=== PATIENT | male | born 1935 | race Caucasian/White ===

== ENCOUNTER → 2017-05-18 | Outpatient (CLI) | payer MEDICARE, OTHER ==
[~2017-05-18] MED LIST: ACTOS30 MG; ASPIRIN81 M1 PO; BROMOCRIPTINE2.5 MG PO; COLACE100 MG PO; COREG3.125 MG PO; FLOMAX0.4 MG PO; HUMULIN R100 U/ML SC; HYDR25T PO; KEPPRA500 MG PO; LEVOFLOXACIN500 MG PO; LEXAPRO10 MG PO; LISINOPRIL10 MG PO; LISINOPRIL20 MG PO; MIRALAX POWDER17 GM PO; Metformin Hydr500 MG PO; PLAVIX75 MG PO; POLYETHYLENE GL1 PO6 PO; PROVIGIL100 MG PO; RITE AID BRANDS1 TA4 PO; ROCEPHIN1 GM IJ; SIMVASTATIN20 MG PO; SIMVASTATIN40 MG PO; TYLENOL500 MG PO
== END | disposition home or self-care (01) ==
LOC: CARD 09:30
DX: I34.0 Nonrheumatic mitral (valve) insufficiency (principal); I51.7 Cardiomegaly

== ENCOUNTER → 2017-08-20 | Outpatient (CLI) | payer MEDICARE, OTHER | END | disposition home or self-care (01) | LOC: LAB 13:32 | DX: E11.65 Type 2 diabetes mellitus with hyperglycemia (principal) ==

== ENCOUNTER 2018-03-18 12:12 | Emergency (ER) | payer MEDICARE, OTHER ==
[~2018-03-18] VITALS: Wt 93.0 kg
[2018-03-18] MEDS ORDERED: VIBRAMYCIN100 MG PO (14:44)
== END 2018-03-18 14:42 | disposition home or self-care (01) ==
LOC: ED 12:12
DX: S60.222A Contusion of left hand, initial encounter (principal); Z88.5 Allergy status to narcotic agent; Z79.2 Long term (current) use of antibiotics; Z79.82 Long term (current) use of aspirin; Z79.84 Long term (current) use of oral hypoglycemic drugs; Z79.899 Other long term (current) drug therapy; W19.XXXA Unspecified fall, initial encounter; Y93.89 Activity, other specified; Y92.89 Other specified places as the place of occurrence of the external cause; Y99.8 Other external cause status

== ENCOUNTER → 2018-04-12 | Outpatient (CLI) | payer MEDICARE, OTHER ==
[~2018-04-12] MED LIST changes: +VIBRAMYCIN100 MG PO
== END | disposition home or self-care (01) ==
LOC: LAB 13:19 → US 13:30
DX: N20.0 Calculus of kidney (principal); N32.89 Other specified disorders of bladder; N18.3 Chronic kidney disease, stage 3 (moderate)

== ENCOUNTER 2019-02-14 19:08 | Emergency (ER) | payer MEDICARE, OTHER ==
[~2019-02-14] VITALS: Ht 170.1 cm; Wt 90.7 kg
--- NOTE | ~2019-02-14 | EKG ---
[place], [place] ELECTROCARDIOGRAM REPORT NAME: LYNN OWENS UNIT #: [id number] ROOM: DOCTOR: EPIPHANY DRAFT REPORT BIRTHDATE: [birth year] [facility] Test Date: 2019-02-14 Test Time: 19:18:40 Pat Name: LYNN OWENS Department: Room: Gender: Predator Control Trapper: Vaibhav Lopez : 1935 Requested By: GEORGE MCGUIRE Order Number: [id number] Reading MD: Preet Matson MD Measurements Intervals [place] Rate: 70 P: 24 [place]: 192 QRS: -49 QRSD: 149 T: 1 QT: 415 QTc: 448 Interpretive Statements Sinus rhythm RBBB and LAFB Electronically Signed On 02-17-2019 7:21:56 PDT by Preet Matson MD CM:EKGRPT:ELECTROCARDIOGRAM REPORT 17 0721 GEORGE MCGUIRE MD EPIPHANY DRAFT REPORT GEORGE MCGUIRE MD
[2019-02-14 19:38] LABS: BASO % 0.5 % (0.0-1.0); EOS # 0.1 10*3/uL (0.0-0.4); EOS % 0.8 % (1.0-4.0); HEMATOCRIT 35.4 % (42.0-52.0); HEMOGLOBIN 11.3 g/dl (14.0-18.0); LYMPH # 0.9 10*3/uL (1.3-4.4); LYMPH % 10.1 % (27.0-41.0); MEAN CELL VOLUME 93.2 fl (80.0-94.0); MEAN CORPUSCULAR HGB 29.7 pg (27.0-31.0); MEAN CORPUSCULAR HGB CONC 31.9 g/dl (33.0-37.0); MONO # 0.7 10*3/uL (0.1-1.0); MONO % 8.1 % (3.0-9.0); NEUT # 6.8 10*3/uL (2.3-7.9); NEUT % 80.3 % (47.0-73.0); PLATELET COUNT AUTOMATED 307 10*3/uL (130-400); RED CELL DISTRI WIDTH 11.8 % (0-14.5); WHITE BLOOD COUNT 8.5 10*3/uL (4.8-10.8)
[2019-02-14 19:55] LABS: ALBUMIN 2.5 gm/dl (3.1-4.5); ALKALINE PHOSPHATASE 83 U/L (45-117); BUN 26 mg/dl (7-24); CHLORIDE 102 mmol/L (98-107); CREATININE 1.12 mg/dL (0.70-1.30); POTASSIUM 4.3 mmol/L (3.5-5.1); SGOT/AST 13 IU/L (3-35); SGPT/ALT 24 U/L (12-78); SODIUM 136 mmol/L (136-145); TOTAL PROTEIN 7.3 gm/dL (6.4-8.2)
[2019-02-14 19:56] LABS: TROPONIN I < 0.015 ng/ml (<0.045)
[2019-02-14 19:57] LABS: ACT PARTIAL THROMBO TIME 29.9 SECONDS (20.0-32.1)
[2019-02-14 20:14] LABS: BILIRUBIN NEGATIVE (NEGATIVE); BLOOD TRACE-INTACT (NEGATIVE); CLARITY CLEAR (CLEAR); COLOR YELLOW (YELLOW); GLUCOSE NEGATIVE (NEGATIVE); KETONE NEGATIVE (NEGATIVE); LEUKO ESTERASE NEGATIVE (NEGATIVE); NITRITE NEGATIVE (NEGATIVE); PH 5.5 (5.0-9.0); UROBILINOGEN 0.2 E.U./dl (0.2-1.0)
[2019-02-14] MEDS ORDERED: DONEPEZIL HYDROC5 MG PO (20:14)
[2019-02-14] MEDS ORDERED: SERTRALINE HYDR50 MG PO (20:15)
[2019-02-14] MEDS ORDERED: MIDODRINE HCL10 MG PO (20:16)
[2019-02-14 20:20] LABS: BACTERIA 2+; EPITHELIAL CELLS 0-2; WBC 0-2 wbc/hpf (0-5)
== END 2019-02-14 22:59 | disposition home or self-care (01) ==
LOC: ED 19:08
PROVIDERS: Emergency Medicine Emergency Medical Services; Physician Assistant
DX: R53.1 Weakness (principal); R26.2 Difficulty in walking, not elsewhere classified; R79.1 Abnormal coagulation profile; Z79.899 Other long term (current) drug therapy; Z79.82 Long term (current) use of aspirin; Z88.6 Allergy status to analgesic agent

== ENCOUNTER 2019-03-03 11:59 | Inpatient (IN) | payer MEDICARE, OTHER ==
[~2019-03-03] VITALS: Ht 170.1 cm; Wt 89.1 kg
--- NOTE | ~2019-03-03 | CON ---
[place], [place] REPORT OF CONSULTATION NAME: [facility]NN OWENS [id number] UNIT #: [id number] ROOM: 531 DOCTOR: PHD KIRTI TATYANA BIRTHDATE: [birth year] DOS: 03/04/2019 HISTORY OF PRESENT ILLNESS: The patient is an 83-year-old male, referred by Dr. Yani Sol for a behavioral health consult. At the present time, the patient is on the 5th floor at [facility]. The patient presented to the ED due to generalized weakness. He has not been able to get out of bed since Day. He has a history of depression and has been experiencing visual hallucinations lately. He also has history of dementia. He lives with his and is a poor historian. He denied alcohol, tobacco, and illegal drug use. PAST MEDICAL HISTORY: BPH, CKD, dementia, depression, diabetic neuropathy, type 2 diabetes, expressive aphasia, hyperlipidemia, hypertension, obesity, obstructive sleep apnea, stroke, and TIA. MEDICATIONS: Folic acid, vitamin D, Zoloft, Plavix, Lovenox, Aricept, Zocor, ProAmatine, Keppra, Flomax, Humalog, Provigil, and Restoril. MENTAL STATUS EXAMINATION: The patient was sitting comfortably, in no apparent distress. He was awake, alert, and oriented to person, place, and month. Mood was depressed. Affect was blunted. He denied suicidal and homicidal ideation, plan, and intent. Speech was slow. He was slow to respond to questions. Short and long-term memory gaps were apparent in conversation. He appeared to easily confuse. He did not appear to be responding to internal stimuli. He reports that he sometimes sees mice running at the [place], but he knows that they are not real. He had a hard time understanding questions. DIAGNOSES: 1. Unspecified neurocognitive disorder, unspecified depressive disorder. 2. Unspecified psychosis. RECOMMENDATIONS: I consulted with Dr. Rider about the patient. He suggested discontinuing Zoloft and Aricept in favor of an Exelon patch 4.6 mg and Remeron 15 mg at bedtime. Thank you very much for this consult. Kymberly Francisco, PhD CM:CONSTR:REPORT OF CONSULTATION 1459 03/05/19 0246 interface
--- NOTE | ~2019-03-03 | EKG ---
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
[~2019-03-03 11:59] MED LIST changes: +DONEPEZIL HYDROC5 MG PO; +MIDODRINE HCL10 MG PO; +SERTRALINE HYDR50 MG PO
[2019-03-03 12:05] VITALS: BP 140/44
[2019-03-03 12:38] LABS: BASO % 0.4 % (0.0-1.0); EOS # 0.2 10*3/uL (0.0-0.4); EOS % 2.4 % (1.0-4.0); HEMOGLOBIN 11.3 g/dl (14.0-18.0); LYMPH # 1.1 10*3/uL (1.3-4.4); LYMPH % 10.9 % (27.0-41.0); MEAN CORPUSCULAR HGB 29.2 pg (27.0-31.0); MEAN CORPUSCULAR HGB CONC 31.4 g/dl (33.0-37.0); MEAN PLATELET VOLUME 10.4 fl (9.6-12.3); MONO # 0.7 10*3/uL (0.1-1.0); MONO % 7.4 % (3.0-9.0); NEUT # 7.7 10*3/uL (2.3-7.9); NEUT % 78.3 % (47.0-73.0); PLATELET COUNT AUTOMATED 300 10*3/uL (130-400); RED BLOOD COUNT 3.87 10*6/uL (4.50-5.90); RED CELL DISTRI WIDTH 12.2 % (0-14.5); WHITE BLOOD COUNT 9.8 10*3/uL (4.8-10.8)
[2019-03-03 12:49] LABS: ACT PARTIAL THROMBO TIME 27.8 SECONDS (20.0-32.1); INTERNATIONAL NORM RATIO 0.9 (2.0-3.5)
[2019-03-03 12:56] LABS: ALBUMIN 2.4 gm/dl (3.1-4.5); ALKALINE PHOSPHATASE 101 U/L (45-117); BUN 27 mg/dl (7-24); CHLORIDE 107 mmol/L (98-107); CREATININE 1.27 mg/dL (0.70-1.30); POTASSIUM 4.1 mmol/L (3.5-5.1); SGOT/AST 14 IU/L (3-35); SGPT/ALT 20 U/L (12-78); SODIUM 140 mmol/L (136-145)
[2019-03-03 13:03] LABS: TROPONIN I < 0.015 ng/ml (<0.045)
[2019-03-03 13:30] VITALS: BP 132/80
[2019-03-03] MEDS ORDERED: VITAMIN D-32000 UNI1 PO (14:58)
[2019-03-03 16:00] VITALS: BP 137/39
[2019-03-03 20:00] VITALS: BP 134/46
[2019-03-03 22:50] LABS: BILIRUBIN NEGATIVE (NEGATIVE); BLOOD NEGATIVE (NEGATIVE); CLARITY CLEAR (CLEAR); COLOR YELLOW (YELLOW); GLUCOSE NEGATIVE (NEGATIVE); KETONE NEGATIVE (NEGATIVE); LEUKO ESTERASE NEGATIVE (NEGATIVE); NITRITE NEGATIVE (NEGATIVE); PH 5.5 (5.0-9.0); UROBILINOGEN 0.2 E.U./dl (0.2-1.0)
[2019-03-04] VITALS: BP 133/49
[2019-03-04 06:34] LABS: ALBUMIN 2.4 gm/dl (3.1-4.5); BUN 29 mg/dl (7-24); CHLORIDE 107 mmol/L (98-107); CHOLESTEROL 91 mg/dL (<200); CREATININE 1.08 mg/dL (0.70-1.30); POTASSIUM 4.2 mmol/L (3.5-5.1); SGOT/AST 10 IU/L (3-35); SGPT/ALT 13 U/L (12-78); SODIUM 138 mmol/L (136-145); TOTAL PROTEIN 6.6 gm/dL (6.4-8.2); TRIGLYCERIDES 49 mg/dl (<150); VLDL CHOLESTEROL 10 mg/dL (6-40)
[2019-03-04 06:41] LABS: ALKALINE PHOSPHATASE 86 U/L (45-117); FREE T4 1.05 ng/dl (0.76-1.46); HDL CHOLESTEROL 39 mg/dl (40-60); LDL CHOLESTEROL 42 mg/dL (9-159)
[2019-03-04 06:44] LABS: BASO # 0.1 10*3/uL (0.0-0.1); BASO % 0.7 % (0.0-1.0); EOS # 0.3 10*3/uL (0.0-0.4); EOS % 3.3 % (1.0-4.0); HEMATOCRIT 33.4 % (42.0-52.0); HEMOGLOBIN 10.6 g/dl (14.0-18.0); LYMPH # 1.4 10*3/uL (1.3-4.4); LYMPH % 17.7 % (27.0-41.0); MEAN CORPUSCULAR HGB 29.5 pg (27.0-31.0); MEAN CORPUSCULAR HGB CONC 31.7 g/dl (33.0-37.0); MONO # 0.6 10*3/uL (0.1-1.0); MONO % 7.9 % (3.0-9.0); NEUT # 5.3 10*3/uL (2.3-7.9); NEUT % 69.7 % (47.0-73.0); PLATELET COUNT AUTOMATED 296 10*3/uL (130-400); RED BLOOD COUNT 3.59 10*6/uL (4.50-5.90); RED CELL DISTRI WIDTH 12.1 % (0-14.5); WHITE BLOOD COUNT 7.6 10*3/uL (4.8-10.8)
[2019-03-04 07:35] LABS: VITAMIN D, 25-HYDROXY 38.8 ng/mL (30-100)
[2019-03-04 08:00] VITALS: BP 118/49
[2019-03-04 12:00] VITALS: BP 122/48
[2019-03-04 16:00] VITALS: BP 133/49
[2019-03-04 20:00] VITALS: BP 136/47
[2019-03-05] VITALS: BP 142/54
[2019-03-05 06:30] LABS: BASO # 0.1 10*3/uL (0.0-0.1); BASO % 0.8 % (0.0-1.0); EOS # 0.3 10*3/uL (0.0-0.4); HEMOGLOBIN 10.4 g/dl (14.0-18.0); LYMPH # 1.4 10*3/uL (1.3-4.4); LYMPH % 18.7 % (27.0-41.0); MEAN CELL VOLUME 92.7 fl (80.0-94.0); MEAN CORPUSCULAR HGB 29.2 pg (27.0-31.0); MEAN CORPUSCULAR HGB CONC 31.5 g/dl (33.0-37.0); MEAN PLATELET VOLUME 10.9 fl (9.6-12.3); MONO # 0.6 10*3/uL (0.1-1.0); MONO % 8.4 % (3.0-9.0); NEUT # 5.1 10*3/uL (2.3-7.9); NEUT % 67.6 % (47.0-73.0); PLATELET COUNT AUTOMATED 280 10*3/uL (130-400); RED BLOOD COUNT 3.56 10*6/uL (4.50-5.90); RED CELL DISTRI WIDTH 12.1 % (0-14.5); WHITE BLOOD COUNT 7.5 10*3/uL (4.8-10.8)
[2019-03-05 06:36] LABS: BUN 26 mg/dl (7-24); CHLORIDE 108 mmol/L (98-107); CREATININE 0.93 mg/dL (0.70-1.30); POTASSIUM 4.1 mmol/L (3.5-5.1); SODIUM 141 mmol/L (136-145)
[2019-03-05 08:00] VITALS: BP 114/52
[2019-03-05 12:00] VITALS: BP 112/46
[2019-03-05] MEDS ORDERED: EXELON1 EACH T (15:19)
[2019-03-05] MEDS ORDERED: REMERON15 M2 PO (15:19)
[2019-03-05 16:00] VITALS: BP 110/56
== END 2019-03-05 20:33 | DRG 947 ==
LOC: ED 11:59 → EDHOLD 12:57 → 5E 12:57
PROVIDERS: Emergency Medicine; Internal Medicine; ADMIT Internal Medicine
DX: R53.1 Weakness (principal); E43 Unspecified severe protein-calorie malnutrition; E87.2 Acidosis; R47.01 Aphasia; R62.7 Adult failure to thrive; G40.909 Epilepsy, unspecified, not intractable, without status epilepticus; N18.9 Chronic kidney disease, unspecified; F03.90 Unspecified dementia, unspecified severity, without behavioral disturbance, psychotic disturbance, mood disturbance, and anxiety; E11.40 Type 2 diabetes mellitus with diabetic neuropathy, unspecified; E66.9 Obesity, unspecified; G47.33 Obstructive sleep apnea (adult) (pediatric); I12.9 Hypertensive chronic kidney disease with stage 1 through stage 4 chronic kidney disease, or unspecified chronic kidney disease; D64.9 Anemia, unspecified; E11.65 Type 2 diabetes mellitus with hyperglycemia; N40.1 Benign prostatic hyperplasia with lower urinary tract symptoms; E11.49 Type 2 diabetes mellitus with other diabetic neurological complication; F32.9 Major depressive disorder, single episode, unspecified; R41.9 Unspecified symptoms and signs involving cognitive functions and awareness; F29 Unspecified psychosis not due to a substance or known physiological condition; Z88.6 Allergy status to analgesic agent; Z86.73 Personal history of transient ischemic attack (TIA), and cerebral infarction without residual deficits; Z80.52 Family history of malignant neoplasm of bladder; Z79.4 Long term (current) use of insulin; Z68.30 Body mass index [BMI] 30.0-30.9, adult

== ENCOUNTER 2021-09-21 12:18 | Inpatient (IN) | payer MEDICARE ==
[~2021-09-21] VITALS: Ht 172.7 cm; Wt 88.9 kg
[~2021-09-21 12:18] MED LIST changes: +EXELON1 EACH T; +GLUCOPHAGE500 MG PO; -Metformin Hydr500 MG PO; +REMERON15 M2 PO; +VITAMIN D-32000 UNI1 PO
[2021-09-21 12:25] VITALS: BP 179/60
[2021-09-21] MEDS ORDERED: SERTRALINE HYDR50 MG PO (12:41)
[2021-09-21 13:05] LABS: BASO % 0.6 % (0.0-1.0); EOS # 0.3 10*3/uL (0.0-0.4); EOS % 3.7 % (1.0-4.0); HEMATOCRIT 42.4 % (42.0-52.0); LYMPH # 1.8 10*3/uL (1.3-4.4); LYMPH % 26.1 % (27.0-41.0); MEAN CELL VOLUME 92.4 fl (80.0-94.0); MEAN CORPUSCULAR HGB 31.2 pg (27.0-31.0); MEAN CORPUSCULAR HGB CONC 33.7 g/dl (33.0-37.0); MEAN PLATELET VOLUME 11.5 fl (9.6-12.3); MONO # 0.6 10*3/uL (0.1-1.0); MONO % 7.9 % (3.0-9.0); NEUT # 4.3 10*3/uL (2.3-7.9); NEUT % 61.4 % (47.0-73.0); PLATELET COUNT AUTOMATED 179 10*3/uL (130-400); RED BLOOD COUNT 4.59 10*6/uL (4.50-5.90); RED CELL DISTRI WIDTH 12.2 % (0-14.5)
[2021-09-21 13:23] LABS: CREATININE 1.69 mg/dL (0.70-1.30); POTASSIUM 4.2 mmol/L (3.5-5.1); TOTAL PROTEIN 7.3 gm/dL (6.4-8.2)
[2021-09-21 13:44] LABS: BILIRUBIN Negative (Negative); BLOOD Negative (Negative); CLARITY Clear (Clear); COLOR Yellow (Yellow); GLUCOSE Negative (Negative); KETONE Negative (Negative); LEUKO ESTERASE 1+ (Negative); NITRITE Negative (Negative); SPECIFIC GRAVITY 1.015 (1.001-1.030); UROBILINOGEN 0.2 E.U./dl (0.0-1.0)
[2021-09-21 13:49] LABS: BACTERIA 1+; WBC 16-20 wbc/hpf (0-5)
[2021-09-21 15:17] VITALS: BP 161/89
[2021-09-21 15:40] VITALS: BP 108/68
[2021-09-21 20:00] VITALS: BP 175/59
[2021-09-22] VITALS: BP 150/64
[2021-09-22 06:18] LABS: POTASSIUM 4.5 mmol/L (3.5-5.1)
[2021-09-22 06:31] LABS: CREATININE 1.45 mg/dL (0.70-1.30); THYROID STIM HORMONE (HS) 1.65 uIU/ml (0.358-4.75)
[2021-09-22 06:36] LABS: BASO # 0.1 10*3/uL (0.0-0.1); BASO % 0.8 % (0.0-1.0); EOS # 0.2 10*3/uL (0.0-0.4); EOS % 3.5 % (1.0-4.0); HEMATOCRIT 42.4 % (42.0-52.0); LYMPH # 1.5 10*3/uL (1.3-4.4); LYMPH % 21.9 % (27.0-41.0); MEAN CELL VOLUME 93.6 fl (80.0-94.0); MEAN CORPUSCULAR HGB 31.6 pg (27.0-31.0); MEAN CORPUSCULAR HGB CONC 33.7 g/dl (33.0-37.0); MEAN PLATELET VOLUME 11.8 fl (9.6-12.3); MONO # 0.6 10*3/uL (0.1-1.0); MONO % 8.9 % (3.0-9.0); NEUT # 4.3 10*3/uL (2.3-7.9); NEUT % 64.6 % (47.0-73.0); PLATELET COUNT AUTOMATED 167 10*3/uL (130-400); RED BLOOD COUNT 4.53 10*6/uL (4.50-5.90); RED CELL DISTRI WIDTH 12.1 % (0-14.5); WHITE BLOOD COUNT 6.6 10*3/uL (4.8-10.8)
[2021-09-22 08:34] VITALS: BP 179/54
[2021-09-22 10:20] VITALS: BP 130/54
[2021-09-22 12:00] VITALS: BP 135/48
[2021-09-22 20:00] VITALS: BP 109/42
[2021-09-23] VITALS: BP 165/54
[2021-09-23 13:20] LABS: CREATININE 1.5 mg/dL (0.70-1.30)
[2021-09-23] MEDS ORDERED: CEFUROXIME AXE500 MG PO (16:23)
[2021-09-23 16:34] LABS: BASO % 0.6 % (0.0-1.0); EOS # 0.3 10*3/uL (0.0-0.4); HEMATOCRIT 37.4 % (42.0-52.0); LYMPH # 1.5 10*3/uL (1.3-4.4); LYMPH % 21.4 % (27.0-41.0); MEAN CELL VOLUME 91.9 fl (80.0-94.0); MEAN CORPUSCULAR HGB CONC 33.7 g/dl (33.0-37.0); MONO # 0.6 10*3/uL (0.1-1.0); NEUT # 4.5 10*3/uL (2.3-7.9); NEUT % 64.7 % (47.0-73.0); PLATELET COUNT AUTOMATED 149 10*3/uL (130-400); RED BLOOD COUNT 4.07 10*6/uL (4.50-5.90); RED CELL DISTRI WIDTH 12.2 % (0-14.5)
[2021-09-23 20:00] VITALS: BP 140/60
[2021-09-24] VITALS: BP 150/66
[2021-09-24 05:59] LABS: BUN 30 mg/dl (7-24); CHLORIDE 112 mmol/L (98-107); POTASSIUM 4.4 mmol/L (3.5-5.1); SODIUM 142 mmol/L (136-145)
[2021-09-24 08:00] VITALS: BP 178/62
== END 2021-09-24 12:03 | DRG 683 ==
LOC: ED 12:18 → 5E 14:13 → EDHOLD 14:13 → 5E 14:56
PROVIDERS: Emergency Medicine; Internal Medicine; ADMIT Internal Medicine; ATTEND Internal Medicine
DX: N17.9 Acute kidney failure, unspecified (principal); N30.00 Acute cystitis without hematuria; E86.0 Dehydration; I12.9 Hypertensive chronic kidney disease with stage 1 through stage 4 chronic kidney disease, or unspecified chronic kidney disease; E11.22 Type 2 diabetes mellitus with diabetic chronic kidney disease; N18.30 Chronic kidney disease, stage 3 unspecified; Z20.822 Contact with and (suspected) exposure to COVID-19; R62.7 Adult failure to thrive; I69.398 Other sequelae of cerebral infarction; E78.5 Hyperlipidemia, unspecified; E66.9 Obesity, unspecified; A49.1 Streptococcal infection, unspecified site; Z88.5 Allergy status to narcotic agent; Z68.29 Body mass index [BMI] 29.0-29.9, adult

== ENCOUNTER 2021-12-03 20:08 | Emergency (ER) | payer MEDICARE ==
[~2021-12-03] VITALS: Ht 6583 cm; Wt 98.0 kg
[~2021-12-03 20:08] MED LIST changes: +CEFUROXIME AXE500 MG PO
[2021-12-03 20:47] LABS: BASO # 0.1 10*3/uL (0.0-0.1); BASO % 0.4 % (0.0-1.0); EOS # 0.2 10*3/uL (0.0-0.4); HEMATOCRIT 37.7 % (42.0-52.0); LYMPH # 1.1 10*3/uL (1.3-4.4); LYMPH % 9.2 % (27.0-41.0); MEAN CELL VOLUME 94.3 fl (80.0-94.0); MEAN CORPUSCULAR HGB 30.5 pg (27.0-31.0); MEAN CORPUSCULAR HGB CONC 32.4 g/dl (33.0-37.0); MEAN PLATELET VOLUME 10.8 fl (9.6-12.3); MONO # 1.2 10*3/uL (0.1-1.0); MONO % 10.4 % (3.0-9.0); NEUT # 8.9 10*3/uL (2.3-7.9); NEUT % 77.7 % (47.0-73.0); PLATELET COUNT AUTOMATED 159 10*3/uL (130-400); RED CELL DISTRI WIDTH 12.7 % (0-14.5); WHITE BLOOD COUNT 11.5 10*3/uL (4.8-10.8)
[2021-12-03 21:04] LABS: ALKALINE PHOSPHATASE 95 U/L (45-117); BUN 31 mg/dl (7-24); CHLORIDE 108 mmol/L (98-107); CREATININE 1.36 mg/dL (0.70-1.30); POTASSIUM 4.5 mmol/L (3.5-5.1); SGOT/AST 16 IU/L (3-35); SGPT/ALT 15 U/L (12-78); SODIUM 141 mmol/L (136-145); TOTAL PROTEIN 7.1 gm/dL (6.4-8.2)
== END 2021-12-04 00:53 | disposition home or self-care (01) ==
LOC: ED 20:08
PROVIDERS: Internal Medicine
DX: B34.9 Viral infection, unspecified (principal); Z20.822 Contact with and (suspected) exposure to COVID-19; N17.9 Acute kidney failure, unspecified; D64.9 Anemia, unspecified; R79.82 Elevated C-reactive protein (CRP); Z88.8 Allergy status to other drugs, medicaments and biological substances; Z79.899 Other long term (current) drug therapy

== ENCOUNTER 2022-01-04 03:45 | Emergency (ER) | payer MEDICARE | END 2022-01-04 08:35 | LOC: ED 03:45 | DX: Z04.3 Encounter for examination and observation following other accident (principal); Z88.5 Allergy status to narcotic agent; Z79.899 Other long term (current) drug therapy; Z98.890 Other specified postprocedural states; Z85.51 Personal history of malignant neoplasm of bladder ==

== ENCOUNTER → 2023-03-07 | Outpatient (CLI) | payer MEDICARE ==
[~2023-03-07] MED LIST changes: +CALMOSEPTINE OI71 GM T; +JANUVIA50 MG PO; +KEPPRA1000 MG PO; +KEPPRA750 MG PO; +TYLENOL325 M2 PO; +ZYVOX600 MG PO
== END | disposition home or self-care (01) ==
LOC: CT 03-01 10:00
PROVIDERS: ATTEND Urology
DX: C64.9 Malignant neoplasm of unspecified kidney, except renal pelvis (principal); R31.9 Hematuria, unspecified; K80.20 Calculus of gallbladder without cholecystitis without obstruction